=== PATIENT | male | born 1990 | race Caucasian/White ===

== ENCOUNTER 2016-09-14 22:06 | Emergency (ER) | payer SELFPAY ==
--- NOTE | 2016-10-19 15:38 | ER ---
ADMIT: 09/14/2016 RM/LOC: ER [facility] MR#: [id number] [address] [id number] [place] [address] [facility] [place] [address] Emergency Room Report SEX: M AGE: 26 : 1990 DATE: 09/14/2016 A 26-year-old gentleman who dropped a 200-pound weight on his right great toe causing laceration. See T-sheet for remainder of history and physical. X-ray revealed no fracture. The toenail was nearly completely avulsed through the matrix. Attempts to salvage this and suture down the toenail to protect the nail bed required #6 3-0 Prolene sutures. DIAGNOSIS: Laceration. Mor Lopez MD/ funmi JOB #: [id number] CC: Rajinder Newby MD, Attending Physician Curry Shepherd MD, Family Physician
== END 2016-09-15 01:52 | disposition home or self-care (01) ==
LOC: ER 22:06
DX: S91.211A Laceration without foreign body of right great toe with damage to nail, initial encounter (principal); W20.8XXA Other cause of strike by thrown, projected or falling object, initial encounter; Y92.009 Unspecified place in unspecified non-institutional (private) residence as the place of occurrence of the external cause; Z88.8 Allergy status to other drugs, medicaments and biological substances